=== PATIENT | male | born 1970 ===

== ENCOUNTER → 2022-03-14 08:00 | Outpatient (CLI) | payer OTHER | END | disposition home or self-care (01) | LOC: ADM 03-10 12:30 → LAB 08:00 → CIR.AMB 03-16 08:45 → EDSTATUS 03-16 12:30 → CIR.AMB 03-16 12:30 | PROVIDERS: ATTEND Surgery Surgery of the Hand | DX: M67.842 Other specified disorders of synovium, left hand (principal); Z01.818 Encounter for other preprocedural examination; E87.6 Hypokalemia; Z20.822 Contact with and (suspected) exposure to COVID-19 ==